=== PATIENT | female | born 1985 | race African-American/Black ===

== ENCOUNTER 2018-06-13 15:20 | Emergency (ER) | payer OTHER ==
[2018-06-13 15:27] VITALS: BP 131/90; PULSE 92; TEMP 98.2; BMI 23.2
--- NOTE | 2018-06-13 15:27 | PDOC ---
Rapid Medical Evaluation Chief Complaint: Hemoptysis Time Seen by Provider: 06/13/18 15:23 Medical Evaluation: 06/13/18 15:25 I performed a brief in person evaluation. CC: Hemoptysis HPI: Pt is a 33 YO female who is who is approx 25 weeks who states she has had hemoptysis x 1 day. Pt denies hx of PE/DVTs. PE: Skin: Clear Lungs: Clear Heart: RRR MS: Moves all extremities without difficulty Neuro: Alert Psych: Appropriate affect Pt will go to main ED for further evaluation. Discharge Disposition - Diagnosis Hemoptysis - Referrals - Patient Instructions - Post Discharge Activity
[2018-06-13] MEDS ORDERED: SODIUM CHLORIDE 1,000 ML IV STA (16:11)
[2018-06-13] MEDS ORDERED: METOCLOPRAMIDE HCL INJECTION 10 MG/2 ML VIAL IVPB ONE (16:11)
--- NOTE | 2018-06-13 16:45 | PDOC ---
History of Present Illness - General Chief Complaint: Hemoptysis Stated Complaint: VOMITING BLOOD, ABD PAIN (25 WKS ) Time Seen by Provider: 06/13/18 15:23 History Source: Patient - History of Present Illness Timing/Duration: reports: constant Quality: reports: severe Abdominal Pain Onset Location: reports: other (lower abd) Past History - Past Medical History Allergies/Adverse Reactions: Allergies Allergy/AdvReac Type Severity Reaction Status Date / Time No Known Allergies Allergy Verified 06/13/18 15:27 Home Medications: Ambulatory Orders Metoclopramide HCl [Reglan] 10 mg PO Q8H #2 tablet 06/13/18 COPD: No Diabetes: No HTN: No - Surgical History Cholecystectomy: No - Suicide/Smoking/Psychosocial Hx Smoking History: Current every day smoker Have you smoked in the past 12 months: No Information on smoking cessation initiated: No Hx Alcohol Use: No Drug/Substance Use Hx: No Review of Systems - Review of Systems Constitutional: No: Chills, Fever ABD/GI: Yes: Nausea, Vomiting, Abdominal cramping. No: Constipated, Diarrhea : No: Dysuria *Physical Exam - Vital Signs Last Vital Signs Temp Pulse Resp BP Pulse Ox 98.2 F 92 H 18 131/90 98 06/13/18 15:24 06/13/18 15:24 06/13/18 15:24 06/13/18 15:24 06/13/18 15:24 - Physical Exam General Appearance: Yes: Appropriately Dressed, Moderate Distress HEENT: positive: Normal Voice Neck: positive: Supple Respiratory/Chest: negative: Respiratory Distress Gastrointestinal/Abdominal: positive: Tender (to lower abd diffusely), Soft Musculoskeletal: negative: CVA Tenderness Integumentary: positive: Dry, Warm Neurologic: positive: Fully Oriented, Alert, Normal Mood/Affect Moderate Sedation - Procedure Monitoring Vital Signs: Procedure Monitoring Vital Signs Temperature 98.2 F 06/13/18 15:24 Pulse Rate 92 H 06/13/18 15:24 Respiratory Rate 18 06/13/18 15:24 Blood Pressure 131/90 06/13/18 15:24 O2 Sat by Pulse Oximetry (%) 98 06/13/18 15:24 ED Treatment Course - LABORATORY CBC & Chemistry Diagram: 06/13/18 16:47 06/13/18 16:47 - RADIOLOGY Radiology Studies Ordered: Category Date Time Status OB LIMITED US [US] Stat Ultrasound 06/13/18 16:32 Ordered Medical Decision Making - Medical Decision Making 06/13/18 16:42 33 yo F, , ~25 weeks, complicated by SGA (small for gestational age), f/u w/ OB in [place] where she resides, in [place] currently visiting relatives, p/w n/v since last night. At some point, noticed streaks of BRB in vomitus. Also reports lower abd cramming. No vag bleed, dysuria, f/c. See exam Hyperemesis -IVF -reglan -labs -US 06/13/18 16:53 06/13/18 17:41 Pt reports feeling significantly better at this time and was able to tolerate po in ER. Labs unremarkable, ua pending. US performed but pt declines to wait for results. States she will call tomorrow for report. Has OB appt in 4 days and will follow up 06/13/18 18:39 Patient eloped from ED pending UA, which ended up being unremarkable. IV was taken out prior to elopement. Patient was already made aware of follow-up instructions. 06/13/18 18:40 *DC/Admit/Observation/Transfer Diagnosis at time of Disposition: Hyperemesis gravidarum - Discharge Dispostion Disposition: ELOPED Condition at time of disposition: Fair - Prescriptions Prescriptions: Metoclopramide HCl [Reglan] 10 mg PO Q8H #2 tablet - Referrals - Patient Instructions Printed Discharge Instructions: DI for Hyperemesis Gravidarum Additional Instructions: Take reglan as needed for pain and maintain adequate hydration Please follow up with your OB in 4 days as already scheduled Call [phone] for ultrasound results - Post Discharge Activity
[2018-06-13 17:04] LABS: BASO % 0.5 % (0-2.0); EOS % 1.3 % (0-4.5); HEMATOCRIT 33.8 % (32.4-45.2); HEMOGLOBIN 11.9 GM/dL (10.7-15.3); LYMPH % 28.7 % (8-40); MCH 33.2 pg (25.7-33.7); MCHC 35.1 g/dl (32.0-36.0); MEAN CELL VOLUME 94.5 fl (80-96); MEAN PLT VOLUME 8.8 fl (7.5-11.1); MONO % 5.3 % (3.8-10.2); NEUT % 64.2 % (42.8-82.8); PLATELET COUNT 150 K/MM3 (134-434); RBC 3.58 M/mm3 (3.60-5.2); RDW 14.7 % (11.6-15.6)
[2018-06-13 17:29] LABS: ALK PHOS 54 U/L (45-117); ANION GAP 11 MMOL/L (8-16); BILIRUBIN,TOTAL 0.7 mg/dL (0.2-1); BLOOD UREA NITROGEN 9 mg/dL (7-18); CALCIUM 8.2 mg/dL (8.5-10.1); CHLORIDE 105 mmol/L (98-107); CO2 22 mmol/L (21-32); CREATININE 0.5 mg/dL (0.55-1.3); GLUCOSE,RANDOM 78 mg/dL (74-106); LIPASE 69 U/L (73-393); POTASSIUM 3.4 mmol/L (3.5-5.1); SGOT/AST 18 U/L (15-37); SGPT/ALT 17 U/L (13-61); SODIUM 138 mmol/L (136-145); TOT PROT 6.2 g/dl (6.4-8.2)
[2018-06-13 18:15] LABS: URINE APPEARANCE SLCLOUDY; URINE BILIRUBIN NEGATIVE (<2.0 mg/dL); URINE COLOR YELLOW; URINE GLUCOSE (UA) NEGATIVE (NEGATIVE); URINE KETONE 2+ (NEGATIVE); URINE LEUK ESTERASE TRACE (NEGATIVE); URINE NITRITE NEGATIVE (NEGATIVE); URINE PROTEIN 1+ (NEGATIVE); URINE UROBILINOGEN NEGATIVE mg/dL (0.2-1.0)
[2018-06-13 18:20] LABS: EPI CELLS FEW /HPF (FEW); URINE BACTERIA RARE /hpf (NONE SEEN); URINE MUCUS MANY
== END 2018-06-13 17:45 | disposition left against medical advice (07) ==
LOC: JER 15:20
PROC: 3E033GC Introduction of Other Therapeutic Substance into Peripheral Vein, Percutaneous Approach (ICD-10-PCS; principal; 2018-06-13)
DX: O26.892 Other specified pregnancy related conditions, second trimester (principal); O21.0 Mild hyperemesis gravidarum; Z3A.25 25 weeks gestation of pregnancy
CPT/HCPCS: 36415; 76815; 80053; 81003; 81015; 83690; 85025; 99282-25; J7030